=== PATIENT | female | born 1980 | race Caucasian/White ===

== ENCOUNTER 2022-04-14 16:05 | Inpatient (IN) | payer OTHER ==
[2022-04-14 19:34] VITALS: BMI 26.4
[2022-04-14] MEDS ORDERED: LOPERAMIDE HCL 2 MG CAPSULE PO PRN (22:43)
[2022-04-14] MEDS ORDERED: DICYCLOMINE HCL 10 MG CAPSULE PO PRN (22:43)
[2022-04-14] MEDS ORDERED: IBUPROFEN 600 MG TABLET (FP) PO PRN (22:43)
[2022-04-14] MEDS ORDERED: MAGNESIUM HYDROX 2400MG/30ML ORAL SUSPENSION 30 ML CUP PO PRN (22:43)
[2022-04-14] MEDS ORDERED: NICOTINE 10 MG CARTRIDGE (INHALER) IH PRN (22:43)
[2022-04-14] MEDS ORDERED: MAGNESIUM CITRATE 300 ML BOTTLE PO PRN (22:43)
[2022-04-14] MEDS ORDERED: BENZOCAINE/MENTHOL (CHLORASEPTIC ) LOZENGE MM PRN (22:43)
[2022-04-14] MEDS ORDERED: BISMUTH SUBSALICYLATE 524 MG/30 ML PO PRN (22:43)
[2022-04-14] MEDS ORDERED: IBUPROFEN 400 MG TABLET (FP) PO PRN (22:43)
[2022-04-14] MEDS ORDERED: MAG HYDROX/AL HYDROX/SIMETH 30 ML UNIT-DOSE CUP PO PRN (22:43)
[2022-04-14] MEDS ORDERED: ONDANSETRON *ODT* 4 MG TABLET SL PRN (22:43)
[2022-04-14] MEDS ORDERED: ACETAMINOPHEN 325 MG TABLET (FP) PO PRN ×2 (22:43)
[2022-04-15] MEDS ORDERED: methaDONE HCL 10 MG TABLET PO SCH (09:30)
[2022-04-15] MEDS: methaDONE 40 MG, methaDONE 20 MG PO SCH (10:54)
[2022-04-15] MEDS: PRENATAL VITAMINS W/ FOLIC ACID TABLET (FP) PO SCH (10:54)
[2022-04-15] MEDS: NICOTINE 14 MG/24 HOURS TOPICAL PATCH TD SCH (10:55)
[2022-04-15 11:06] LABS: HEMATOCRIT 40.7 % (32.4-45.2); HEMOGLOBIN 13.7 GM/dL (10.7-15.3); MCH 28.8 pg (25.7-33.7); MCHC 33.7 g/dl (32.0-36.0); MEAN CELL VOLUME 85.3 fl (80-96); MEAN PLT VOLUME 7.9 fl (7.5-11.1); PLATELET COUNT 266 10^3/uL (134-434); RBC 4.76 M/mm3 (3.60-5.2); WHITE BLOOD COUNT 8.3 K/mm3 (4.0-10.0)
[2022-04-15 11:33] LABS: CALCIUM 8.7 mg/dL (8.5-10.1)
[2022-04-15 11:34] LABS: BLOOD UREA NITROGEN 16.6 mg/dL (7-18)
[2022-04-15 11:36] LABS: ALBUMIN 3.4 g/dl (3.4-5.0)
[2022-04-15 11:37] LABS: CREATININE 0.7 mg/dL (0.55-1.3)
[2022-04-15 11:38] LABS: BILIRUBIN,TOTAL 0.8 mg/dL (0.2-1); TOT PROT 6.7 g/dl (6.4-8.2)
[2022-04-15] MEDS: diazePAM 5 MG TABLET PO SCH ×3 (12:30→22:38)
[2022-04-15] MEDS: valACYclovir HCL 500 MG TABLET (FP) PO SCH (15:58)
[2022-04-15] MEDS: diazePAM 5 MG TABLET PO PRN (20:00)
[2022-04-15] MEDS: MELATONIN 5 MG TABLETS PO SCH (22:37)
[2022-04-15] MEDS: THIAMINE HCL 100 MG TABLET (FP) PO SCH (22:37)
[2022-04-15] MEDS: METHOCARBAMOL 500 MG TABLET PO PRN (22:38)
[2022-04-16] MEDS: methaDONE 40 MG, methaDONE 20 MG PO SCH (06:50)
[2022-04-16] MEDS: diazePAM 5 MG TABLET PO SCH ×4 (06:50→22:14)
[2022-04-16 08:43] VITALS: RESP 18
[2022-04-16] MEDS: diazePAM 5 MG TABLET PO PRN ×2 (08:52→13:49)
[2022-04-16] MEDS: NICOTINE 14 MG/24 HOURS TOPICAL PATCH TD SCH (10:31)
[2022-04-16] MEDS: METHOCARBAMOL 500 MG TABLET PO PRN ×2 (10:31→22:16)
[2022-04-16] MEDS: PRENATAL VITAMINS W/ FOLIC ACID TABLET (FP) PO SCH (10:31)
[2022-04-16] MEDS: valACYclovir HCL 500 MG TABLET (FP) PO SCH (10:31)
[2022-04-16] MEDS: THIAMINE HCL 100 MG TABLET (FP) PO SCH (22:16)
[2022-04-16 23:03] VITALS: BP 145/86; PULSE 86; TEMP 97.7
[2022-04-16] MEDS: MELATONIN 5 MG TABLETS PO SCH (23:21)
[2022-04-17] MEDS ORDERED: diazePAM 5 MG TABLET PO SCH (06:00)
[2022-04-18] MEDS ORDERED: diazePAM 5 MG TABLET PO SCH (06:00)
[2022-04-19] MEDS ORDERED: diazePAM 5 MG TABLET PO ONE (06:00)
== END 2022-04-16 23:27 | disposition left against medical advice (07) | DRG 770 ==
LOC: SUATTDRO 16:05 → YASAS 16:05 → UNDOADMIN 23:47 → Y3N 23:47
PROVIDERS: ADMIT Allergy & Immunology; ATTEND Surgery
PROC: HZ2ZZZZ Detoxification Services for Substance Abuse Treatment (ICD-10-PCS; principal; 2022-04-14)
DX: F10.230 Alcohol dependence with withdrawal, uncomplicated (principal); F11.20 Opioid dependence, uncomplicated; F13.230 Sedative, hypnotic or anxiolytic dependence with withdrawal, uncomplicated; F12.20 Cannabis dependence, uncomplicated; F17.210 Nicotine dependence, cigarettes, uncomplicated; Z86.11 Personal history of tuberculosis; Z86.19 Personal history of other infectious and parasitic diseases; Z56.0 Unemployment, unspecified
CPT/HCPCS: 36415; 71046-TC-FY; 80053; 81025; 85027; 86593; 86780; 87811; 93005; 93010